=== PATIENT | female | born 1970 | race African-American/Black ===

== ENCOUNTER 2021-01-11 00:39 | Inpatient (IN) | payer MEDICARE ==
[2021-01-11] MEDS ORDERED: Morphine 4 MG/ML VIAL ONE ×4 (01:01→09:00)
[2021-01-11] MEDS ORDERED: Ondansetron PF 4 MG/2 ML Vial ONE ×2 (01:02→09:00)
[2021-01-11 01:17] LABS: #Basophils 0.1 10x3/uL (0.0-0.2); #Eosinphils 0.3 10x3/uL (0.0-0.5); #Monocytes 0.5 10x3/uL (0.0-1.1); #Neutrophils 7.5 10x3/uL (1.5-8.4); %Basophils 0.5 % (0.0-2.0); %Eosinophils 2.4 % (0.0-6.0); %Lymphocytes 22.1 % (18.0-47.0); %Monocytes 4.9 % (0.0-10.0); %Neutrophils 69.8 % (40.0-75.0); Hemoglobin 13.1 g/dL (12.0-15.5); Mean Corpuscular HGB CONC 30.7 g/dL (32.0-36.0); Mean Corpuscular Hemoglobin 28.1 pg (27.0-33.0); Mean Corpuscular Volume 91.6 fl (81.6-98.3); Mean Platelet Volume 9.9 fl (7.4-10.4); Platelet Count 324 10x3/uL (150-450); RBC Distribution Width 13.3 % (11.5-14.5); Red Blood Cell (RBC) Count 4.66 10x6/uL (3.90-5.03); White Blood Cell (WBC) Count 10.7 10x3/uL (3.5-10.5)
[2021-01-11 01:28] LABS: ALT (SGPT) 18 U/L (8-55); AST (SGOT) 19 U/L (5-34); Albumin 4.3 g/dL (3.5-5.0); Alkaline Phosphatase 69 U/L (40-110); Anion Gap 15 mmol/L (10-20); BUN (Urea Nitrogen) 16 mg/dL (9.8-20.1); Bilirubin, Total 0.8 mg/dL (0.2-1.2); Calc. Creatinine Clearance 0 mL/min (70-130); Calcium 10.3 mg/dL (7.8-10.44); Carbon Dioxide 29 mmol/L (22-29); Chloride 101 mmol/L (98-107); Globulin 3.5 g/dL (2.4-3.5); Glucose 108 mg/dL (70-105); Lipase 6 U/L (8-78); Potassium 3.7 mmol/L (3.5-5.1); Protein, Total 7.8 g/dL (6.0-8.3); Sodium 141 mmol/L (136-145)
[2021-01-11] MEDS ORDERED: Pantoprazole 40 MG VIAL ONE (08:29)
[2021-01-11 08:32] LABS: Lactic Acid 0.6 mmol/L (0.5-2.2)
[2021-01-11 08:33] LABS: #Eosinphils 0.2 10x3/uL (0.0-0.5); #Monocytes 0.7 10x3/uL (0.0-1.1); #Neutrophils 7.3 10x3/uL (1.5-8.4); %Basophils 0.4 % (0.0-2.0); %Eosinophils 2.1 % (0.0-6.0); %Lymphocytes 18.7 % (18.0-47.0); %Monocytes 6.4 % (0.0-10.0); %Neutrophils 71.4 % (40.0-75.0); Hemoglobin 12.5 g/dL (12.0-15.5); Mean Corpuscular HGB CONC 30.3 g/dL (32.0-36.0); Mean Corpuscular Hemoglobin 28.5 pg (27.0-33.0); Mean Corpuscular Volume 94.1 fl (81.6-98.3); Mean Platelet Volume 9.9 fl (7.4-10.4); Platelet Count 258 10x3/uL (150-450); RBC Distribution Width 13.6 % (11.5-14.5); Red Blood Cell (RBC) Count 4.38 10x6/uL (3.90-5.03); White Blood Cell (WBC) Count 10.2 10x3/uL (3.5-10.5)
[2021-01-11] MEDS ORDERED: Bisacodyl 10 MG SUPP PR PRN (08:34)
[2021-01-11 08:44] LABS: Anion Gap 18 mmol/L (10-20); BUN (Urea Nitrogen) 15 mg/dL (9.8-20.1); Calc. Creatinine Clearance 0 mL/min (70-130); Calcium 9.3 mg/dL (7.8-10.44); Carbon Dioxide 19 mmol/L (22-29); Chloride 108 mmol/L (98-107); Glucose 90 mg/dL (70-105); Potassium 4.5 mmol/L (3.5-5.1); Sodium 140 mmol/L (136-145)
[2021-01-11 09:49] LABS: Albumin 4.1 g/dL (3.5-5.0); Anion Gap 18 mmol/L (10-20); BUN (Urea Nitrogen) 15 mg/dL (9.8-20.1); BUN/Creatinine Ratio 17.05; Calc. Creatinine Clearance 0 mL/min (70-130); Calcium 9.7 mg/dL (7.8-10.44); Carbon Dioxide 23 mmol/L (22-29); Chloride 106 mmol/L (98-107); Glucose 92 mg/dL (70-105); Phosphorus 4.4 mg/dL (2.3-4.7); Potassium 4.8 mmol/L (3.5-5.1); Sodium 142 mmol/L (136-145)
[2021-01-11 10:28] VITALS: BMI 48.4
[2021-01-11] MEDS ORDERED: Pantoprazole 40 MG VIAL IVP SCH (11:30)
[2021-01-11] MEDS: Enoxaparin Sodium 40 MG/0.4 ML SYRINGE SC SCH (12:45)
[2021-01-11] MEDS: Ondansetron PF 4 MG/2 ML Vial IVP PRN (18:28)
[2021-01-11] MEDS: Morphine 4 MG/ML VIAL SLOW IVP PRN ×2 (18:30→22:54)
[2021-01-11 22:18] LABS: SARS-CoV-2 PCR by NAA Not Detected (NotDetected)
[2021-01-11] MEDS: Pantoprazole 40 MG VIAL IVP SCH (22:53)
[2021-01-12] MEDS: Ondansetron PF 4 MG/2 ML Vial IVP PRN ×3 (00:51→21:21)
[2021-01-12] MEDS: Morphine 4 MG/ML VIAL SLOW IVP PRN ×4 (06:09→21:21)
[2021-01-12 07:12] LABS: #Eosinphils 0.2 10x3/uL (0.0-0.5); #Monocytes 0.7 10x3/uL (0.0-1.1); %Basophils 0.3 % (0.0-2.0); %Lymphocytes 11.2 % (18.0-47.0); %Monocytes 6.1 % (0.0-10.0); %Neutrophils 79.8 % (40.0-75.0); Hemoglobin 11.9 g/dL (12.0-15.5); Mean Corpuscular HGB CONC 29.8 g/dL (32.0-36.0); Mean Corpuscular Hemoglobin 28.5 pg (27.0-33.0); Mean Corpuscular Volume 95.7 fl (81.6-98.3); Mean Platelet Volume 10.3 fl (7.4-10.4); Platelet Count 261 10x3/uL (150-450); RBC Distribution Width 13.6 % (11.5-14.5); Red Blood Cell (RBC) Count 4.18 10x6/uL (3.90-5.03); White Blood Cell (WBC) Count 11.3 10x3/uL (3.5-10.5)
[2021-01-12 08:08] LABS: Anion Gap 19 mmol/L (10-20); BUN (Urea Nitrogen) 18 mg/dL (9.8-20.1); Calc. Creatinine Clearance 174 mL/min (70-130); Calcium 9.4 mg/dL (7.8-10.44); Carbon Dioxide 21 mmol/L (22-29); Chloride 107 mmol/L (98-107); Glucose 71 mg/dL (70-105); Potassium 4.8 mmol/L (3.5-5.1); Sodium 142 mmol/L (136-145)
[2021-01-12 08:51] LABS: RBC Morphology Normal
[2021-01-12] MEDS: Enoxaparin Sodium 40 MG/0.4 ML SYRINGE SC SCH (09:01)
[2021-01-12] MEDS: Pantoprazole 40 MG VIAL IVP SCH ×2 (09:01→21:21)
[2021-01-12] MEDS ORDERED: Lactated Ringer's 1,000 ML IV SCH (14:45)
[2021-01-12] MEDS: Lactated Ringer's 1,000 ML IV SCH ×2 (17:10→21:35)
[2021-01-13] MEDS: Pantoprazole 40 MG VIAL IVP SCH (09:39)
[2021-01-13] MEDS ORDERED: Lisinopril 10 MG TAB PO SCH (12:30)
[2021-01-13] MEDS: Enoxaparin Sodium 40 MG/0.4 ML SYRINGE SC SCH (12:53)
[2021-01-13] MEDS: HYDROcodone/Acetaminophen 5/325 mg Tablet PO PRN (16:32)
[2021-01-13] MEDS: Lactated Ringer's 1,000 ML IV SCH (18:33)
[2021-01-13] MEDS ORDERED: Loratadine 10 MG TAB PO PRN (20:52)
[2021-01-13] MEDS ORDERED: Docusate 100 MG CAP PO SCH (23:45)
[2021-01-14] MEDS: HYDROcodone/Acetaminophen 5/325 mg Tablet PO PRN (00:17)
[2021-01-14] MEDS: Lactated Ringer's 1,000 ML IV SCH ×2 (02:22→06:53)
[2021-01-14] MEDS: Pantoprazole 40 MG VIAL IVP SCH (04:01)
[2021-01-14 06:24] LABS: #Eosinphils 0.2 10x3/uL (0.0-0.5); #Monocytes 0.5 10x3/uL (0.0-1.1); #Neutrophils 3.5 10x3/uL (1.5-8.4); %Basophils 0.3 % (0.0-2.0); %Eosinophils 3.4 % (0.0-6.0); %Lymphocytes 31.3 % (18.0-47.0); %Monocytes 8.7 % (0.0-10.0); %Neutrophils 55.3 % (40.0-75.0); Hemoglobin 10.3 g/dL (12.0-15.5); Mean Corpuscular HGB CONC 30.5 g/dL (32.0-36.0); Mean Corpuscular Hemoglobin 28.3 pg (27.0-33.0); Mean Corpuscular Volume 92.9 fl (81.6-98.3); Mean Platelet Volume 10.6 fl (7.4-10.4); Platelet Count 237 10x3/uL (150-450); RBC Distribution Width 13.1 % (11.5-14.5); Red Blood Cell (RBC) Count 3.64 10x6/uL (3.90-5.03); White Blood Cell (WBC) Count 6.2 10x3/uL (3.5-10.5)
[2021-01-14 06:54] LABS: Anion Gap 16 mmol/L (10-20); BUN (Urea Nitrogen) 12 mg/dL (9.8-20.1); Calc. Creatinine Clearance 186 mL/min (70-130); Calcium 9.2 mg/dL (7.8-10.44); Carbon Dioxide 24 mmol/L (22-29); Chloride 104 mmol/L (98-107); Glucose 86 mg/dL (70-105); Potassium 5.4 mmol/L (3.5-5.1); Sodium 139 mmol/L (136-145)
[2021-01-14 07:12] LABS: Magnesium 1.8 mg/dL (1.6-2.6)
[2021-01-14] MEDS ORDERED: Cetirizine HCl 10 MG TAB PO PRN (09:00)
[2021-01-14] MEDS ORDERED: Aspirin 325 MG TAB PO SCH (09:00)
[2021-01-14] MEDS ORDERED: Lisinopril 20 MG TAB PO SCH (09:00)
[2021-01-14] MEDS ORDERED: Bupropion 150 MG XL TAB PO SCH (09:00)
[2021-01-14] MEDS: Enoxaparin Sodium 40 MG/0.4 ML SYRINGE SC SCH (09:17)
[2021-01-14 12:02] VITALS: BP 142/84; TEMP 98.1
== END 2021-01-14 12:55 | disposition home or self-care (01) | DRG 389 ==
LOC: CSHERS 00:39 → CSHTELE 02:10
PROVIDERS: ADMIT Hospitalist; ATTEND Internal Medicine
DX: K56.51 Intestinal adhesions [bands], with partial obstruction (principal); Z68.42 Body mass index [BMI] 45.0-49.9, adult; Z20.822 Contact with and (suspected) exposure to COVID-19; I48.0 Paroxysmal atrial fibrillation; G47.33 Obstructive sleep apnea (adult) (pediatric); I11.9 Hypertensive heart disease without heart failure; E78.5 Hyperlipidemia, unspecified; J45.909 Unspecified asthma, uncomplicated; E66.01 Morbid (severe) obesity due to excess calories; Z90.49 Acquired absence of other specified parts of digestive tract; Z79.82 Long term (current) use of aspirin; Z79.891 Long term (current) use of opiate analgesic; Z79.899 Other long term (current) drug therapy; Z86.010 Personal history of colon polyps
CPT/HCPCS: 36416; 74018; 74177; 80048; 80053; 83605; 83690; 83735; 85025; 87635; 93005; 96374; 96375; 96376; C9113; J1650; J2270; J2405; U0003; U0005

== ENCOUNTER 2021-03-26 22:16 | Emergency (ER) | payer MEDICARE ==
[2021-03-26 23:07] LABS: #Basophils 0.1 10x3/uL (0.0-0.2); #Eosinphils 0.2 10x3/uL (0.0-0.5); #Monocytes 0.7 10x3/uL (0.0-1.1); #Neutrophils 8.5 10x3/uL (1.5-8.4); %Basophils 0.4 % (0.0-2.0); %Lymphocytes 20.7 % (18.0-47.0); %Neutrophils 70.3 % (40.0-75.0); Hemoglobin 12.7 g/dL (12.0-15.5); Mean Corpuscular HGB CONC 31.1 g/dL (32.0-36.0); Mean Corpuscular Volume 93.2 fl (81.6-98.3); Mean Platelet Volume 9.6 fl (7.4-10.4); Platelet Count 288 10x3/uL (150-450); RBC Distribution Width 13.8 % (11.5-14.5); Red Blood Cell (RBC) Count 4.38 10x6/uL (3.90-5.03)
[2021-03-26 23:15] LABS: ALT (SGPT) 13 U/L (8-55); AST (SGOT) 17 U/L (5-34); Albumin 4.2 g/dL (3.5-5.0); Alkaline Phosphatase 66 U/L (40-110); Anion Gap 16 mmol/L (10-20); BUN (Urea Nitrogen) 17 mg/dL (9.8-20.1); Bilirubin, Total 0.5 mg/dL (0.2-1.2); Calc. Creatinine Clearance 0 mL/min (70-130); Carbon Dioxide 25 mmol/L (22-29); Chloride 103 mmol/L (98-107); Globulin 3.2 g/dL (2.4-3.5); Glucose 88 mg/dL (70-105); Potassium 3.6 mmol/L (3.5-5.1); Protein, Total 7.4 g/dL (6.0-8.3); Sodium 140 mmol/L (136-145)
[2021-03-27 01:15] LABS: Troponin I Less than 0.010 ng/mL (< 0.028)
== END 2021-03-27 01:58 | disposition home or self-care (01) ==
LOC: CSHERS 22:16
DX: I49.3 Ventricular premature depolarization (principal); I10 Essential (primary) hypertension; I48.91 Unspecified atrial fibrillation; J45.909 Unspecified asthma, uncomplicated; Z79.82 Long term (current) use of aspirin; Z79.899 Other long term (current) drug therapy
CPT/HCPCS: 71045; 80053; 84484; 85025

== ENCOUNTER 2024-10-26 12:00 | Emergency (ER) | payer MEDICARE ==
[2024-10-26 13:39] LABS: #Basophils 0.04 10x3/uL (0.0-0.2); #Eosinophils 0.45 10x3/uL (0.0-0.5); #Monocytes 0.52 10x3/uL (0.0-1.1); #Neutrophils 5.08 10x3/uL (1.5-8.4); %Basophils 0.5 % (0.0-2.0); %Eosinophils 5.4 % (0.0-6.0); %Lymphocytes 27.2 % (18.0-47.0); %Monocytes 6.2 % (0.0-10.0); %Neutrophils 60.5 % (40.0-75.0); Hematocrit 39.1 % (34.9-44.5); Hemoglobin 11.9 g/dL (12.0-15.5); Mean Corpuscular HGB CONC 30.4 g/dL (32.0-36.0); Mean Corpuscular Hemoglobin 27.4 pg (27.0-33.0); Mean Corpuscular Volume 90.1 fL (81.6-98.3); Mean Platelet Volume 9.9 fL (7.4-10.4); Platelet Count 244 10x3/uL (150-450); RBC Distribution Width 13.4 % (11.5-14.5); Red Blood Cell (RBC) Count 4.34 10x6/uL (3.90-5.03); White Blood Cell (WBC) Count 8.4 10x3/uL (3.5-10.5)
[2024-10-26 13:45] LABS: ALT (SGPT) Less than 7 U/L (8-55); AST (SGOT) 13 U/L (5-34); Albumin 3.9 g/dL (3.5-5.0); Alkaline Phosphatase 64 U/L (40-110); Anion Gap 14 mmol/L (10-20); BUN (Urea Nitrogen) 21 mg/dL (9.8-20.1); Bilirubin, Total 0.7 mg/dL (0.2-1.2); Calc. Creatinine Clearance 0 mL/min (70-130); Calcium 9.8 mg/dL (7.8-10.44); Carbon Dioxide 24 mmol/L (22-29); Chloride 105 mmol/L (98-107); Estimated GFR 79; Globulin 3.2 g/dL (2.4-3.5); Glucose 83 mg/dL (70-105); Potassium 4.2 mmol/L (3.5-5.1); Protein, Total 7.1 g/dL (6.0-8.3); Sodium 139 mmol/L (136-145)
[2024-10-26 13:49] LABS: Troponin I Less than 0.010 ng/mL (< 0.028)
[2024-10-26 16:13] LABS: Troponin I Less than 0.010 ng/mL (< 0.028)
== END 2024-10-26 17:46 | disposition home or self-care (01) ==
LOC: CSHERS 12:00
DX: R55 Syncope and collapse (principal); I48.91 Unspecified atrial fibrillation; I10 Essential (primary) hypertension; Z79.01 Long term (current) use of anticoagulants; Z79.899 Other long term (current) drug therapy
CPT/HCPCS: 36415; 71045; 80053; 84484; 85025; 93005